=== PATIENT | male | born 1975 | race Caucasian/White ===

== ENCOUNTER → 2016-11-11 | Outpatient (REF) | payer OTHER ==
[2016-11-11 17:59] LABS: ALBUMIN 4.4 g/dL (3.4-5.0); ANION GAP 15.9 MEQ/L (3-15); CALCULATED IONIZED CALCIUM 4.2 mg/dL (3.8-4.6); TOTAL PROTEIN 7.6 g/dL (6.4-8.5)
== END ==
LOC: LAB 16:22
PROVIDERS: ATTEND Family Medicine
DX: I10 Essential (primary) hypertension (principal); Z13.6 Encounter for screening for cardiovascular disorders
CPT/HCPCS: 80053; 80061